=== PATIENT | female | born 1945 | race Caucasian/White ===

== ENCOUNTER 2017-04-02 09:19 | Emergency (ER) | payer MEDICARE, BC ==
--- NOTE | 2017-04-02 09:36 | UC ---
Respiratory Complaint HPI - HPI Summary HPI Summary: Pt presents with sinus congestion. She tells me that for the past 4-5 days she has had sinus congestion, pain, and pressure with a dry cough. She reports that she never gets ill and this is unusual for her. Has not tried anything OTC. Denies fevers, chills, earache, SOB, chest pain, abdominal pain, N/V/D/C - History of Current Complaint Stated Complaint: EAR PAIN SORE THROAT HEADACHE COUGH Time Seen by Provider: 04/02/17 09:36 Hx Obtained From: Patient Severity Initially: Moderate Severity Currently: Moderate Pain Intensity: 5 Pain Scale Used: 0-10 Numeric - Allergies/Home Medications Allergies/Adverse Reactions: Allergies Allergy/AdvReac Type Severity Reaction Status Date / Time Amoxicillin [From Augmentin] Allergy Unknown Verified 04/02/17 09:45 Reaction Details Clavulanic Acid Allergy Unknown Verified 04/02/17 09:45 [From Augmentin] Reaction Details Ibuprofen [From Advil] Allergy Anaphylatic Verified 04/02/17 09:32 Shock Nitrofurantoin Allergy Rash Verified 04/02/17 09:32 [From Macrobid] Penicillins [PCN] Allergy Rash Verified 04/02/17 09:31 Home Medications: Home Medications Aspirin [Aspirin 81 MG TAB] 81 mg PO DAILY 04/02/17 [History Confirmed 04/02/17] Ezetimibe TAB* [Zetia TAB*] 10 mg PO DAILY 04/02/17 [History Confirmed 04/02/17] Fluticasone NASAL SPRAY 50MCG* [Flonase NASAL SPRAY 50MCG*] 1 spray NASAL DAILY 04/02/17 [History Confirmed 04/02/17] Hydrochlorothiazide [Microzide-] 12.5 mg PO DAILY 04/02/17 [History Confirmed ] LevoCETirizine TAB (NF) [Xyzal TAB (NF)] 1 tab PO DAILY 04/02/17 [History Confirmed 04/02/17] Levothyroxine TAB* [Synthroid 75 MCG TAB*] 75 mcg PO SEE INSTRUCTIONS 04/02/17 [ History Confirmed 04/02/17] Otc Cough Syrup 30 mg PO Q4HR PRN 04/02/17 [History] Verapamil HCl [Verelan] 360 mg PO DAILY 04/02/17 [History Confirmed 04/02/17] cloNIDine TAB* [Catapres 0.1 MG TAB*] 0.2 mg PO BID 04/02/17 [History Confirmed 04/02/17] metFORMIN* [Glucophage 500 MG TAB *] 500 mg PO BID 04/02/17 [History Confirmed 04/02/17] PMH/Surg Hx/FS Hx/Imm Hx Previously Healthy: Yes Cardiovascular History: Hypertension Review of Systems Constitutional: Negative Skin: Negative Eyes: Negative ENT: Sinus Congestion, Sinus Pain/Tenderness Respiratory: Cough Cardiovascular: Negative Gastrointestinal: Negative All Other Systems Reviewed And Are Negative: Yes Physical Exam Triage Information Reviewed: Yes Appearance: Well-Appearing, Well-Nourished Vital Signs Reviewed: Yes Eyes: Positive: Conjunctiva Clear ENT: Positive: Hearing grossly normal, Pharynx normal, Nasal congestion, Nasal drainage, TMs normal, Sinus tenderness, Uvula midline. Negative: Pharyngeal erythema, TM bulging, TM dull, TM red, Tonsillar swelling, Tonsillar exudate Neck: Positive: Supple, Nontender, No Lymphadenopathy Respiratory: Positive: Chest non-tender, Lungs clear, Normal breath sounds, No respiratory distress, No accessory muscle use Cardiovascular: Positive: RRR, No Murmur, Pulses Normal Respiratory Course/Dx - Course Course Of Treatment: sinusitis - zpak due to PCN allergy - Differential Dx/Diagnosis Differential Diagnosis/HQI/PQRI: Bronchitis, Influenza, Lower Resp Infection, Sinusitis Provider Diagnoses: Sinusitis Discharge - Discharge Plan Condition: Stable Disposition: HOME Prescriptions: Azithromycin TAB* [Zithromax TAB (Z-KALIE) 250 mg #6 tabs] 2 tab PO .TODAY, THEN 1 DAILY #1 kalie Patient Education Materials: Sinusitis (ED) Referrals: Jamel Peraza MD [Primary Care Provider] - Additional Instructions: 1) May take Mucinex OTC twice a day as a decongestant If you develop a fever, SOB, chest pain, new or worsening symptoms - please call your PCP or go to the ED. Your blood pressure was high at todays visit. Please see your primary provider within 4 weeks for recheck and re-evaluation.
[2017-04-02 09:45] VITALS: BP 180/82
== END 2017-04-02 10:08 | disposition home or self-care (01) ==
LOC: UCEAST 09:19
DX: J32.9 Chronic sinusitis, unspecified (principal); I10 Essential (primary) hypertension
CPT/HCPCS: 99202; G0463